=== PATIENT | male | born 1975 | race Caucasian/White ===

== ENCOUNTER 2017-12-08 00:56 | Emergency (ER) | payer MEDICAID ==
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
== END 2017-12-08 02:23 | disposition home or self-care (01) ==
LOC: ER 00:56
DX: S00.93XA Contusion of unspecified part of head, initial encounter (principal); R51 Headache; M79.1 Myalgia; Y09 Assault by unspecified means; F17.210 Nicotine dependence, cigarettes, uncomplicated; I10 Essential (primary) hypertension
CPT/HCPCS: 99284; 70450; 72125; L0120